=== PATIENT | male | born 1995 | race Caucasian/White ===

== ENCOUNTER 2017-02-11 09:32 | Emergency (ER) | payer OTHER ==
[2017-02-11 09:45] VITALS: BP 135/72; PULSE 81; TEMP 97; BMI 23.5
--- NOTE | 2017-02-11 10:18 | PDOC ---
History of Present Illness - General Chief Complaint: Pain, Acute Stated Complaint: RIGHT ELBOW PAIN Time Seen by Provider: 02/11/17 10:08 - History of Present Illness Initial Comments: 02/11/17 10:28 Chief complaint: Pain right elbow History of present illness: Pain medial aspect of elbow for several days. 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 Review of systems: Denies any distal numbness tingling pain or weakness. Denies limited range of motion, loss of extension or flexion. Past medical history: Healthy male, no significant medical or surgical problems Social/family history reviewed and noncontributory Physical exam: Alert and oriented well-developed well-nourished no acute distress cooperative Right elbow: There is point tenderness over the medial epicondyle. There is no erythema, warmth, swelling, deformity, or effusion. Full range of motion in flexion and extension. Full range of motion pronation and supination, however, there is pain with extreme supination. Pulses are full. No distal sensory or motor deficits. No visible or palpable sign of trauma to the elbow, upper arm shoulder forearm wrist hand or digits. Impression: Medial epicondylitis, as a result of repetitive stress doing construction work and lifting weights Plan: Rest, sling, ice, anti-inflammatory, and follow-up with orthopedist if no improvement. Fully ambulatory and in no significant pain or other distress upon discharge to follow-up as directed Past History - Past Medical History Allergies/Adverse Reactions: Allergies Allergy/AdvReac Type Severity Reaction Status Date / Time No Known Allergies Allergy Verified 02/11/17 09:33 Home Medications: Ambulatory Orders Ibuprofen 800 mg PO QID #20 tablet 02/11/17 Other medical history: FRACTURE LEFT ANKLE - Psycho/Social/Smoking Cessation Hx Anxiety: No Suicidal Ideation: No Smoking History: Current every day smoker Number of Cigarettes Smoked Daily: 20 Information on smoking cessation initiated: Yes 'Breaking Loose' booklet given: 02/11/17 Hx Alcohol Use: No (DENIES) Drug/Substance Use Hx: No (DENIES) Substance Use Type: None *Physical Exam - Vital Signs Last Vital Signs Temp Pulse Resp BP Pulse Ox 97 F L 81 16 135/72 98 02/11/17 09:33 02/11/17 09:33 02/11/17 09:33 02/11/17 09:33 02/11/17 09:33 *DC/Admit/Observation/Transfer Diagnosis at time of Disposition: Medial epicondylitis of right elbow - Discharge Dispostion Disposition: HOME Condition at time of disposition: Stable Admit: No - Prescriptions Prescriptions: Ibuprofen 800 mg PO QID #20 tablet - Referrals Referrals: Kelvin Gallardo MD [Staff Physician] - 1 week - Patient Instructions Printed Discharge Instructions: DI for Medial Epicondylitis, How to Use a Sling Additional Instructions: Rest, sling, ice, and medication as directed. If no improvement see orthopedist for further evaluation and treatment. Cortisone injection may be considered if present therapy is not effective. - Post Discharge Activity Work/School Note: Back to Work
== END 2017-02-11 10:37 | disposition home or self-care (01) ==
LOC: FER 09:32
DX: M77.01 Medial epicondylitis, right elbow (principal); F17.210 Nicotine dependence, cigarettes, uncomplicated
CPT/HCPCS: 99282-25

== ENCOUNTER 2018-12-28 13:50 | Emergency (ER) | payer OTHER ==
[2018-12-28 13:55] VITALS: BP 121/79; PULSE 80; TEMP 98.2; BMI 24.3
--- NOTE | 2018-12-28 14:47 | PDOC ---
History of Present Illness - General Chief Complaint: Rash Stated Complaint: RASH Time Seen by Provider: 12/28/18 14:32 History Source: Patient Exam Limitations: No Limitations - History of Present Illness Initial Comments: 12/28/18 14:40 healthy 23y/o M p/w b/l rash to axilla. Pt is a construction trades contractor, uses deodorant stick daily (unsure anti-perspirant also or not) but over weekend noted b/l painful red rash to both axillae. Stopped using deodarant, rash has improved but still with central area of redness and pain. no f/c, no bleeding/ induration. no change in the deodorant, same brand for 10 years. No other skin lesions Past History - Past Medical History Allergies/Adverse Reactions: Allergies Allergy/AdvReac Type Severity Reaction Status Date / Time No Known Allergies Allergy Verified 12/28/18 13:51 Home Medications: Ambulatory Orders NK [No Known Home Medication] 12/28/18 COPD: No Other medical history: DENIES - Suicide/Smoking/Psychosocial Hx Smoking History: Current every day smoker Have you smoked in the past 12 months: Yes Number of Cigarettes Smoked Daily: 10 Information on smoking cessation initiated: Yes 'Breaking Loose' booklet given: 02/11/17 Hx Alcohol Use: No Drug/Substance Use Hx: No (DENIES) Substance Use Type: None Review of Systems - Review of Systems Constitutional: No: Chills, Fever Respiratory: No: Shortness of Breath Cardiac (ROS): No: Chest Pain Integumentary: Yes: See HPI *Physical Exam - Vital Signs Last Vital Signs Temp Pulse Resp BP Pulse Ox 98.2 F 80 16 121/79 100 12/28/18 13:50 12/28/18 13:50 12/28/18 13:50 12/28/18 13:50 12/28/18 13:50 - Physical Exam Comments: 12/28/18 14:43 GENERAL: The patient is awake, alert, and fully oriented, in no acute distress. HEAD: Normal with no signs of trauma. EYES: Pupils equal, round and reactive to light, extraocular movements intact, sclera anicteric, conjunctiva clear. EXTREMITIES: Normal range of motion, no edema. NEUROLOGICAL: Normal speech, normal gait. PSYCH: Normal mood, normal affect. SKIN: b/l axillary scaly erythema, improving with larger demarcation of slight hyperpigmentation of area of resolved rash. no induration/fluctuance, slightly tender to palpation. no satellite lesions. Remaining skin clear. Medical Decision Making - Medical Decision Making 12/28/18 14:47 23y/o M with b/l axillary rash most consistent with contact dermatitis, less likely fungal. no evidence of superimposed cellulitis. improving with discontinuation of deodorant, will add topical steroid cream once resolved, start new deodorant derm referral as needed understands return criteria *DC/Admit/Observation/Transfer Diagnosis at time of Disposition: Contact dermatitis Qualifiers: Contact dermatitis type: irritant Contact dermatitis trigger: other chemical product Qualified Code(s): L24.5 - Irritant contact dermatitis due to other chemical products - Discharge Dispostion Condition at time of disposition: Stable - Referrals Referrals: Syed Guillen MD [Primary Care Provider] - Dayana Maki MD [Staff Physician] - - Patient Instructions Printed Discharge Instructions: DI for Contact Dermatitis Additional Instructions: Activity as tolerated. Stay hydrated. Apply hydrocortisone cream to both areas twice daily for one week. This is available [id number]. Avoid any deodorant until symptoms resolved, then start using a new brand. If you are currently using an antiperspirant and deodorant, and this combination continues to cause irritation, try switching to a deodorant only brand. You should follow up with your primary doctor or a traveling sales representative as soon as possible regarding today's emergency department visit. Return to the emergency department for any new or concerning symptoms, particularly worsening redness or pain, fevers or chills, bleeding or pus, severe swelling or discoloration. - Post Discharge Activity
== END 2018-12-28 15:10 | disposition home or self-care (01) ==
LOC: FER 13:50
DX: L24.5 Irritant contact dermatitis due to other chemical products (principal); F17.210 Nicotine dependence, cigarettes, uncomplicated
CPT/HCPCS: 99282-25